=== PATIENT | female | born 1985 | race Caucasian/White ===

== ENCOUNTER 2020-09-07 05:38 | Day surgery (SDC) | payer MEDICAID ==
[2020-08-30 16:14] LABS: CLARITY,URINE CLEAR (Clear); COLOR,URINE YELLOW (Yellow); GLUCOSE, URINE NEGATIVE (Neg); KETONES,URINE NEGATIVE (Neg); LEUKOCYTE ESTERASE ,URINE NEGATIVE (Neg); NITRITES, URINE NEGATIVE (Neg); OCCULT BLOOD,URINE SMALL (Neg); PH,URINE 6.5 (4.8-8.0); PROTEIN,URINE NEGATIVE (Neg); UROBILINOGEN,URINE 0.2 E.U/dL (0.2-1.0)
[2020-08-30 16:20] LABS: UA COLLECTION TYPE CLN CATCH MIDSTREAM
[2020-08-30 16:25] LABS: MUCUS STRANDS FEW /LPF (Neg); SQUAMOUS EPITHELIAL CELL,UR MODERATE /LPF (FEW)
[2020-08-30 16:26] LABS: BACTERIA,URINE FEW /HPF (Neg); WBC,URINE 0-4 /HPF (0-4)
[2020-08-30 16:58] LABS: BASOPHILS % (AUTO) 0.4 % (0-1); EOSINOPHILS % (AUTO) 0.8 % (0-6); LYMPHOCYTES # (AUTO) 2.1 X10'3 (1.1-4.8); LYMPHOCYTES % (AUTO) 31.3 % (21-51); MEAN CORPUSCULAR HGB CONC 33.5 g/dL (33.0-36.5); MEAN CORPUSCULAR VOLUME 95.5 FL (78-98); MEAN PLATELET VOLUME 7.8 FL (7.4-10.4); MONOCYTES # (AUTO) 0.5 X10'3 (0-0.9); MONOCYTES % (AUTO) 7.6 % (2-12); NEUTROPHILS # (AUTO) 3.9 X10'3 (1.8-7.7); NEUTROPHILS % (AUTO) 59.9 % (42-75); PRE OP HEMATOCRIT 48.2 % (35.0-45.0); PRE OP HEMOGLOBIN 16.1 g/dL (12.0-16.0); PRE OP PLATELET COUNT 288 X10'3 (140-440); RED BLOOD COUNT 5.04 X10'6 (4.20-5.60); RED CELL DISTRIBUTION WIDTH 13.1 % (11.5-14.5)
[2020-08-30 17:18] LABS: ALBUMIN 3.4 G/DL (3.4-5.0); ALBUMIN/GLOBULIN RATIO 0.9 (1.1-1.5); ALKALINE PHOSPHATASE 44 IU/L (46-116); BLOOD UREA NITROGEN 10 MG/DL (7-18); BUN/CREATININE RATIO 12.3 (6.6-38.0); CALCIUM 8.4 MG/DL (8.5-10.1); CHLORIDE 103 MMOL/L (99-107); CREATININE 0.81 MG/DL (0.40-0.90); PRE OP ALT 63 U/L (30-65); PRE OP ANION GAP 11 (8-16); PRE OP AST 32 U/L (10-37); PRE OP GLUCOSE 69 MG/DL (70-104); PRE OP POTASSIUM 3.5 MMOL/L (3.4-5.1); PRE OP SODIUM 137 MMOL/L (135-145); TOTAL CARBON DIOXIDE 23.5 MMOL/L (24-32); TOTAL PROTEIN 7.4 G/DL (6.4-8.2); eGFR 80 ML/MIN
[2020-08-30 17:46] LABS: HCG SERUM QL NEGATIVE
[2020-09-07] VITALS (9 sets, daily range): BP systolic 133–155; BP diastolic 50–96
[~2020-09-07] VITALS: Ht 160 cm; Wt 64.4 kg
[~2020-09-07 05:38] MED LIST: BACL20TA7 PO; BIOT10004 PO; CHOL400T57 PO; EVE1000C3 PO; KRIL1CAP21 PO; MELO-100 PO; SUMA50TA17 PO; TOPI50TA24 PO; VITA400T10 PO; clindamycin-Cleocin 900mg/D5W 50 ML IV ONE; famotidine 20mg tablet PO ONE; gentamicin inj 280 MG in normal saline 100ml IV soln 93 ML IV ONE; ringers solution, lacted 1,000 ML IV SCH
[2020-09-07] MEDS ORDERED: LEVO1TAB17 PO (06:27)
[2020-09-07] MEDS ORDERED: clindamycin phosphate 40gm vag cream ONE (06:47)
[2020-09-07] MEDS ORDERED: BUPIVAcaine 0.25% w/Epi /PF 30ml vial ONE (06:47)
[2020-09-07] MEDS ORDERED: BUPIVAcaine/PF 2.5 mg/ml (0.25%) 30ml vial ONE (06:48)
[2020-09-07] MEDS ORDERED: vasoPRESSIN 20 units/ml inj. ONE (06:48)
[2020-09-07] MEDS ORDERED: neomy sulf/polymyxin B sulf. GU irrigation 1ml amp IR ONE ×2 (06:48→07:05)
[2020-09-07] MEDS ORDERED: morphine 2 MG/ML inj. syringe IV PRN (07:15)
[2020-09-07] MEDS ORDERED: labetalol 20mg/4ml (5mg/ml) syringe IV PRN (07:15)
[2020-09-07] MEDS ORDERED: ondansetron/PF 4mg/2ml inj IV PRN ×2 (07:15→09:35)
[2020-09-07] MEDS ORDERED: fentaNYL/PF 50MCG/1 ML 2ML syringe IV PRN ×2 (07:15)
[2020-09-07] MEDS ORDERED: hydrALAZINE 20mg/ml inj. IV PRN (07:15)
[2020-09-07] MEDS ORDERED: ringers solution, lacted 1,000 ML IV SCH ×2 (07:15→09:35)
[2020-09-07] MEDS ORDERED: fentaNYL /PF 50mcg/ml 5ml ampule ONE (07:17)
[2020-09-07] MEDS ORDERED: midazolam 2 mg/2 ml injection ONE (07:17)
[2020-09-07] MEDS ORDERED: glycopyrrolate 0.2mg/ml inj ONE (07:21)
[2020-09-07] MEDS ORDERED: dexamethasone sod phosphate 4mg/ml inj. ONE (07:21)
[2020-09-07] MEDS ORDERED: ondansetron/PF 4mg/2ml inj ONE (07:21)
[2020-09-07] MEDS ORDERED: propofol inj 20 ML IV ONE (07:22)
[2020-09-07] MEDS ORDERED: LIDOcaine 2% (20mg/ml) 5ml vial ONE (07:22)
[2020-09-07] MEDS ORDERED: rocuronium 10mg/ml inj IV ONE ×2 (07:22→09:11)
[2020-09-07] MEDS ORDERED: sevoflurane 250ml liquid IH ONE (07:29)
[2020-09-07] MEDS ORDERED: neostigmine methylsulfate 1 MG/ML 10ml vial ONE (07:29)
[2020-09-07] MEDS ORDERED: ketorolac trometh. 30mg/ml inj. ONE (09:10)
[2020-09-07] MEDS ORDERED: morphine 10mg/ml inj. ONE (09:17)
[2020-09-07] MEDS ORDERED: normal saline 500ml IV soln 500 ML IV PRN (09:35)
[2020-09-07] MEDS ORDERED: LORazepam 2 mg/ml vial IV PRN (09:35)
[2020-09-07] MEDS ORDERED: metoclopramide 5 mg/ml inj IV PRN (09:35)
[2020-09-07] MEDS ORDERED: HYDROcodone/acetaminophen 10/325mg tab PO PRN ×2 (09:35)
[2020-09-07] MEDS ORDERED: magnesium hydroxide 30ml (MOM) UD suspension PO PRN (09:35)
[2020-09-07] MEDS ORDERED: temazepam 15mg capsule PO PRN (09:35)
[2020-09-07] MEDS ORDERED: diphenhydrAMINE 50 mg/ml inj IV PRN (09:35)
[2020-09-07] MEDS ORDERED: LORazepam 1 MG tablet PO PRN (09:35)
[2020-09-07] MEDS ORDERED: sugammadex 200mg/2ml injection IV ONE (09:41)
--- NOTE | 2020-09-07 09:50 | NUR ---
Received from OR via [facility], accompanied by Anesthesiologist dionna and report given by Anesthesiolgist. pt drowsy, oxygenating well on 10 lpm o2 via mask, no resp distress noted. denies nausea, c/o severe incisional pain. medicated prn, see emar. pt has anmol pad in place, 3 abd trocar sites flotation tender w/dermabond. fc patent, scds on. vss.
[2020-09-07] MEDS: morphine 4 MG/ML inj SYRINge IV PRN ×2 (10:30→10:43)
[2020-09-07] MEDS: ketorolac trometh. 30mg/ml inj. IV PRN ×2 (10:35→16:38)
--- NOTE | 2020-09-07 10:41 | NUR ---
received report from andrew luna
--- NOTE | 2020-09-07 11:00 | NUR ---
Report called to receiving nurse. Transferred via bed Belongings with pt, 1 backpack. patient had multiple pain meds during pacu stay, no longer crying. eating ice chips. vss. tolerating po fluids well. transferred to [facility] in stable condition. Special Issues communicated to receiving nurse.
--- NOTE | 2020-09-07 11:16 | NUR ---
Pt arrived via bed to rm [id number]. IV in LFA intact, site clear. Pt c/o pain "09/28" pain. Pt awake, moaning, eating ice chips. JERO Alex aware.
[2020-09-07] MEDS ORDERED: simethicone 80mg chew tab PO SCH (13:00)
[2020-09-07] MEDS ORDERED: ceFAZolin/D5W- 1GM premix 50 ML IV SCH (16:00)
--- NOTE | 2020-09-07 16:30 | NUR ---
PT STATES SHE WANTS TO GO HOME. SHE STATES DR FINE GAVE HER THE OPTION. CALLED DR FINE AND HE AGREED. WILL RUN HER ABX AND DC F/C BEFORE DISCHARGING.
[2020-09-07] MEDS ORDERED: docusate sod 100mg capsule PO SCH (20:00)
[2020-09-08] MEDS ORDERED: enoxaparin 40mg/0.4ml syringe SQ SCH (08:00)
== END 2020-09-07 18:47 | disposition home or self-care (01) ==
LOC: PAS 05:38 → SUR 3N 09:34 → PAS 18:47
PROVIDERS: ATTEND Obstetrics & Gynecology Obstetrics
DX: N92.1 Excessive and frequent menstruation with irregular cycle (principal); D25.9 Leiomyoma of uterus, unspecified; D64.9 Anemia, unspecified; N87.9 Dysplasia of cervix uteri, unspecified; N72 Inflammatory disease of cervix uteri; G43.909 Migraine, unspecified, not intractable, without status migrainosus; F17.290 Nicotine dependence, other tobacco product, uncomplicated; M19.90 Unspecified osteoarthritis, unspecified site; G89.29 Other chronic pain; F32.9 Major depressive disorder, single episode, unspecified; Z79.899 Other long term (current) drug therapy; Z87.442 Personal history of urinary calculi; Z98.890 Other specified postprocedural states; Z88.2 Allergy status to sulfonamides; Z20.828 Contact with and (suspected) exposure to other viral communicable diseases; Z88.0 Allergy status to penicillin; Z72.89 Other problems related to lifestyle; Z83.3 Family history of diabetes mellitus; Z80.0 Family history of malignant neoplasm of digestive organs; Z82.49 Family history of ischemic heart disease and other diseases of the circulatory system; Z83.6 Family history of other diseases of the respiratory system
CPT/HCPCS: 36415; 58552; 71046; 80053; 81001; 82948; 84703; 85025; 86885; 86900; 86901; 87635; 93005; C9399; J0690; J1100; J1580; J1885; J2001; J2250; J2270; J2405; J2704; J3010; J3490; J7120; A4314; A4618; A7000; G0378; J2710

== ENCOUNTER 2023-04-07 14:21 | Outpatient (CLI) | payer MEDICAID ==
[~2023-04-07 14:21] MED LIST changes: +LEVO1TAB17 PO; +TOPI-253 PO; -TOPI50TA24 PO; -clindamycin-Cleocin 900mg/D5W 50 ML IV ONE; -famotidine 20mg tablet PO ONE; -gentamicin inj 280 MG in normal saline 100ml IV soln 93 ML IV ONE; -ringers solution, lacted 1,000 ML IV SCH
== END 2023-04-07 23:59 | disposition home or self-care (01) ==
LOC: RAD 14:21
PROVIDERS: ATTEND Psychiatry & Neurology Neurology
DX: R20.2 Paresthesia of skin (principal); R42 Dizziness and giddiness
CPT/HCPCS: 95816